=== PATIENT | female | born 1950 | race Caucasian/White ===

== ENCOUNTER 2020-09-17 22:45 | Emergency (ER) | payer SELFPAY ==
[2020-09-17 22:57] VITALS: BMI 27.3
[2020-09-18 01:41] VITALS: BP 181/86; PULSE 85; TEMP 97.7
== END 2020-09-18 02:53 | disposition home or self-care (01) ==
LOC: JER 22:45
PROC: 0H98XZX Drainage of Buttock Skin, External Approach, Diagnostic (ICD-10-PCS; principal; 2020-09-17)
DX: K64.5 Perianal venous thrombosis (principal)
CPT/HCPCS: 99282-25

== ENCOUNTER 2021-01-10 19:31 | Emergency (ER) | payer SELFPAY ==
[2021-01-10 19:50] VITALS: BP 116/70; PULSE 86; TEMP 98.6; BMI 26.4
[2021-01-10] MEDS ORDERED: OXYMETAZOLINE 0.05% NASAL SOLUTION 15 ML BOTTLE NS ONE (20:07)
== END 2021-01-10 22:06 | disposition home or self-care (01) ==
LOC: JER 19:31
DX: R04.0 Epistaxis (principal)
CPT/HCPCS: 99283-25

== ENCOUNTER 2021-01-11 22:25 | Emergency (ER) | payer SELFPAY ==
[2021-01-11 22:31] VITALS: BP 168/82; PULSE 82; TEMP 97.5; BMI 29.2
== END 2021-01-11 23:55 | disposition home or self-care (01) ==
LOC: JER 22:25
PROC: 2Y51X5Z Removal of Nasal Packing Material (ICD-10-PCS; principal; 2021-01-11)
DX: Z48.00 Encounter for change or removal of nonsurgical wound dressing (principal)
CPT/HCPCS: 99282-25

== ENCOUNTER 2021-12-02 19:57 | Emergency (ER) | payer SELFPAY ==
[2021-12-02 20:12] VITALS: BP 180/83; PULSE 82; TEMP 98.1; BMI 25.2
[2021-12-02] MEDS ORDERED: LIDOCAINE 5% TOPICAL PATCH TP ONE (20:42)
[2021-12-02] MEDS ORDERED: ACETAMINOPHEN 1000 MG/100 ML BAG IVPB ONE (20:42)
[2021-12-02 21:31] LABS: BASO % 0.8 % (0-2.0); EOS % 2.8 % (0-4.5); HEMATOCRIT 33.9 % (32.4-45.2); HEMOGLOBIN 11.3 GM/dL (10.7-15.3); LYMPH % 48.8 % (8-40); MCH 29.5 pg (25.7-33.7); MCHC 33.4 g/dl (32.0-36.0); MEAN CELL VOLUME 88.2 fl (80-96); MEAN PLT VOLUME 7.9 fl (7.5-11.1); MONO % 7.4 % (3.8-10.2); NEUT % 40.2 % (42.8-82.8); PLATELET COUNT 426 10^3/uL (134-434); RBC 3.85 M/mm3 (3.60-5.2); RDW 14.9 % (11.6-15.6); WHITE BLOOD COUNT 7.5 K/mm3 (4.0-10.0)
[2021-12-02 21:44] LABS: CALCIUM 9.3 mg/dL (8.5-10.1)
[2021-12-02 21:46] LABS: ALBUMIN 3.4 g/dl (3.4-5.0); BLOOD UREA NITROGEN 14.1 mg/dL (7-18)
[2021-12-02 21:48] LABS: CREATININE 0.7 mg/dL (0.55-1.3)
[2021-12-02 21:50] LABS: BILIRUBIN,TOTAL 0.4 mg/dL (0.2-1); TOT PROT 7.9 g/dl (6.4-8.2)
[2021-12-03] MEDS ORDERED: LIDOCAINE PATCH REMOVAL MC SCH (09:00)
== END 2021-12-02 22:26 | disposition home or self-care (01) ==
LOC: JER 19:57
DX: R07.9 Chest pain, unspecified (principal); M54.2 Cervicalgia
CPT/HCPCS: 36415; 71046-TC-FY; 80053; 84484; 85025; 93005; 93010; 99285-25

== ENCOUNTER 2022-07-17 22:13 | Emergency (ER) | payer MEDICARE ==
[2022-07-17 22:37] VITALS: BP 154/79; PULSE 80; RESP 19; TEMP 97.8; BMI 26.4
[2022-07-17] MEDS ORDERED: ACETAMINOPHEN 1000 MG/100 ML BAG IVPB ONE (23:37)
[2022-07-17] MEDS ORDERED: ACETAMINOPHEN INJECTION 100 ML IVPB ONE (23:45)
[2022-07-18 00:47] LABS: BASO % 1.3 % (0-2.0); EOS % 1.6 % (0-4.5); HEMATOCRIT 32.3 % (32.4-45.2); HEMOGLOBIN 10.5 GM/dL (10.7-15.3); LYMPH % 40.6 % (8-40); MCH 28.7 pg (25.7-33.7); MCHC 32.6 g/dl (32.0-36.0); MEAN CELL VOLUME 88.3 fl (80-96); MEAN PLT VOLUME 8.5 fl (7.5-11.1); MONO % 7.6 % (3.8-10.2); NEUT % 48.9 % (42.8-82.8); PLATELET COUNT 414 10^3/uL (134-434); RBC 3.66 M/mm3 (3.60-5.2); RDW 14.8 % (11.6-15.6); WHITE BLOOD COUNT 7.1 K/mm3 (4.0-10.0)
[2022-07-18 00:59] LABS: INR 1.01 (0.83-1.09); PROTHROMBIN TIME (PATIENT) 11.7 SEC (9.7-13.0)
[2022-07-18 01:01] LABS: ACTIVATED PTT 29.2 SECONDS (25.2-36.5)
[2022-07-18 01:09] LABS: CALCIUM 9.2 mg/dL (8.5-10.1)
[2022-07-18 01:10] LABS: ALBUMIN 3.1 g/dl (3.4-5.0); BLOOD UREA NITROGEN 15.1 mg/dL (7-18)
[2022-07-18 01:13] LABS: CREATININE 0.6 mg/dL (0.55-1.3)
[2022-07-18 01:14] LABS: BILIRUBIN,TOTAL 0.4 mg/dL (0.2-1); TOT PROT 7.6 g/dl (6.4-8.2)
[2022-07-18] MEDS ORDERED: LACTATED RINGERS SOLUTION 1000 ML INFUS.BAG IV ONE (01:15)
[2022-07-18 09:35] LABS: ERYTHROCYTE SEDIMENTATION RATE 31 mm/hr (0-30)
== END 2022-07-18 03:20 | disposition home or self-care (01) ==
LOC: JER 22:13
PROC: 3E0333Z Introduction of Anti-inflammatory into Peripheral Vein, Percutaneous Approach (ICD-10-PCS; principal; 2022-07-17)
DX: R51.9 Headache, unspecified (principal)
CPT/HCPCS: 0241U-QW; 36415; 70450-TC; 80053; 85025; 85610; 85651; 85730; 86140; 86850; 86900; 86901; 99284-25

== ENCOUNTER 2023-01-30 21:23 | Emergency (ER) | payer MEDICARE ==
[2023-01-30 21:37] VITALS: RESP 18; BMI 26.4
[2023-01-31] MEDS ORDERED: ACETAMINOPHEN 500 MG TABLET (FP) PO ONE (00:50)
[2023-01-31 01:13] VITALS: BP 161/77; PULSE 71; TEMP 97.4
[2023-01-31] MEDS ORDERED: ACETAMINOPHEN 500 MG TABLET (FP) ONE (01:15)
[2023-01-31] MEDS ORDERED: PIPERACILLIN/TAZOB 4.5 GM 4.5 GM/100 ML BAG IVPB ONE (02:48)
== END 2023-01-31 05:03 | disposition home or self-care (01) ==
LOC: JER 21:23
DX: R42 Dizziness and giddiness (principal); R07.2 Precordial pain
CPT/HCPCS: 70450-TC; 71045-TC-FY; 72125-TC; 72128-TC; 72131-TC; 72170-TC-FY; 73110-TC-LT-FY; 73130-TC-LT-FY; 73564-TC-LT-FY; 99284-25

== ENCOUNTER 2023-08-02 16:18 | Emergency (ER) | payer MEDICARE ==
[2023-08-02 16:38] VITALS: BP 145/83; PULSE 102; RESP 18; TEMP 98.2; BMI 24.1
[2023-08-02] MEDS ORDERED: ACETAMINOPHEN 500 MG TABLET (FP) ONE (17:10)
[2023-08-02] MEDS ORDERED: LIDOCAINE 4% PATCH TP ONE (17:10)
[2023-08-02] MEDS ORDERED: METHOCARBAMOL 500 MG TABLET ONE (17:10)
[2023-08-02] MEDS: LIDOCAINE 4% PATCH TP ONE (17:11)
[2023-08-02] MEDS: METHOCARBAMOL 500 MG TABLET PO ONE (17:11)
[2023-08-02] MEDS: ACETAMINOPHEN 500 MG TABLET (FP) PO ONE (17:11)
[2023-08-02] MEDS ORDERED: LIDOCAINE PATCH REMOVAL MC SCH (22:00)
== END 2023-08-02 17:47 | disposition home or self-care (01) ==
LOC: JER 16:18
DX: M54.50 Low back pain, unspecified (principal); G89.29 Other chronic pain
CPT/HCPCS: 93005; 93010; 99283-25